=== PATIENT | female | born 1965 | race Caucasian/White ===

== ENCOUNTER 2016-11-23 08:16 | Emergency (ER) | payer BC ==
[2016-11-23] MEDS ORDERED: NS 0.9% 1000 ML* 1,000 ML IV ONE (08:42)
[2016-11-23] MEDS ORDERED: Ondansetron INJ* 2 MG/ML VIAL IV ONE (08:42)
[2016-11-23] MEDS ORDERED: Aspirin EC TAB* 325 MG PO ONE (08:44)
--- NOTE | 2016-11-23 09:24 | RAD ---
INDICATION: Chest pain COMPARISON: 194 hours TECHNIQUE: An AP portable view obtained at 0850 hrs is submitted. FINDINGS: Bones/Soft Tissues: There are no acute bony findings. Cardiomediastinal: The cardiomediastinal silhouette is normal. Lungs: There are no infiltrates. Pleura: There are no pleural effusions. Other: None IMPRESSION: NO ACTIVE DISEASE
[2016-11-23 09:45] LABS: Hematocrit 42 % (35-47); Hemoglobin 13.7 g/dl (12.0-16.0); Mean Corpuscular HGB Conc 33 g/dl (31-36); Mean Corpuscular Hemoglobin 27 pg (27-31); Mean Corpuscular Volume 82 fL (80-97); Mean Platelet Volume 9 um3 (7.4-10.4); Red Blood Count 5.11 10^6/ul (4.0-5.4); Red Cell Distribution Width 14 % (10.5-15); White Blood Count 7.6 10^3/ul (3.5-10.8)
[2016-11-23 09:58] LABS: Albumin 4.1 g/dL (3.2-5.2); BUN/Creatinine Ratio 17.6 (8-20); C Reactive Protein 6.12 mg/L (< 5.00); Calcium 9.3 mg/dL (8.6-10.3); EGFR African American 117.8 (>60); EGFR Non-African American 91.6 (>60); Globulin 3.3 g/dL (2-4); Potassium 3.9 mmol/L (3.5-5.0); Total Bilirubin 0.5 mg/dL (0.2-1.0); Total Protein 7.4 g/dL (6.4-8.9)
--- NOTE | 2016-11-23 10:20 | RAD ---
HISTORY: Right upper quadrant pain COMPARISONS: None TECHNIQUE: Multiple transverse and longitudinal ultrasound images were obtained of the right upper quadrant of the abdomen using grayscale and color Doppler imaging. FINDINGS: LIVER: The liver is diffusely echogenic and coarse in echotexture, with decreased acoustic transmission. The liver is otherwise normal in shape, size, and contour. There is normal hepatopedal flow of the portal vein on Doppler imaging. BILIARY TREE: There is no intrahepatic or extrahepatic biliary dilatation. The common duct measures 0.4 cm. GALLBLADDER: The gallbladder is well-visualized. There is no cholelithiasis, gallbladder wall thickening, pericholecystic fluid, or sonographic Espinoza sign. PANCREAS: The pancreas is obscured by overlying bowel gas. RIGHT KIDNEY: The right kidney is normal in shape, size, contour, and echogenicity. There is no hydronephrosis or nephrolithiasis. The right kidney measures 11.3 x 5.1 x 4.4 cm. AORTA AND IVC: The aorta and IVC are unremarkable. FLUID: There are no pleural effusions. There is no free fluid within the hepatorenal recess. OTHER FINDINGS: None. IMPRESSION: FATTY INFILTRATION OF THE LIVER
[2016-11-23 11:07] LABS: Urine Bilirubin Negative (Negative); Urine Glucose Negative (Negative); Urine Nitrite Negative (Negative)
[2016-11-23 12:54] VITALS: BP 124/82
--- NOTE | 2016-11-23 13:28 | ED ---
Shawn Massey Matthew, scribed for Aron Atkinson MD on 11/23/16 at 0902 . HPI Chest Pain - HPI Summary HPI Summary: A 51 y/o female presents to the ED with mid-sternal chest pain since 04:00 this morning. The pain radiates to the right shoulder and back. The pain is rated 5-6 /10 in severity, and described as pressure. Associated symptoms include nausea, vomiting, and headache. The n/v and headache preceded the chest pain. The patient denies abdominal pain. PMHx of pernicious anemia and asthma. SHx of two back surgeries. The patient drinks alcohol nightly and is a light everyday smoker. FHx of CAD. Her mother had an OH in her 60s. - History of Current Complaint Chief Complaint: EDChestPainROMI Time Seen by Provider: 11/23/16 08:32 Hx Obtained From: Patient Onset/Duration: Started Hours Ago, Atraumatic, Still Present Time of Onset: 04:00 Timing: Constant Initial Severity: Moderate Current Severity: Moderate Pain Intensity: 5 Pain Scale Used: 0-10 Numeric Chest Pain Location: Mid Sternal Chest Pain Radiates: Yes Chest Pain Radiates To:: Back, Shoulder - RT Character: Pressure/Squeezing Associated Signs and Symptoms: Positive: Chest Pain, Headaches, Nausea, Vomiting - Allergy/Home Medications Allergies/Adverse Reactions: Allergies Allergy/AdvReac Type Severity Reaction Status Date / Time Amitriptyline Allergy Severe Insomnia Verified 11/23/16 08:18 Sulfa Antibiotics Allergy Severe Nausea And Verified 11/23/16 08:18 Vomiting Apple Fruit Extract Allergy Swelling Verified 11/23/16 08:18 Of Face,Lips,& Throat Smith Allergy Rash Verified 11/23/16 08:18 PMH/Surg Hx/FS Hx/Imm Hx Endocrine/Hematology History: Reports: Hx Anemia - pernicious anemia Respiratory History: Reports: Hx Asthma, Hx Seasonal Allergies, Hx Sleep Apnea - evaluation for 02/2014 GI History: Reports: Hx Irritable Bowel Musculoskeletal History: Reports: Hx Back Problems - hx laminectomy L5-S1 Denies: Hx Scoliosis Neurological History: Reports: Other Neuro Impairments/Disorders - 1997 AND 2004 HAD MICRODISCECTOMY LOW BACK Denies: Hx Headaches - Cancer History Hx Chemotherapy: No Hx Radiation Therapy: No - Surgical History Surgery Procedure, Year, and Place: laminectomy L5-S1 Infectious Disease History: No Infectious Disease History: Denies: Traveled Outside the [place] in Last 30 Days - Family History Known Family History: Positive: Cardiac Disease - Social History Alcohol Use: Daily Alcohol Amount: 1 glass of wine/cocktail Substance Use Type: Reports: None Smoking Status (MU): Light Every Day Tobacco Smoker Type: Cigarettes Have You Smoked in the Last Year: Yes Review of Systems Constitutional: Negative Eyes: Negative ENT: Negative Positive: Chest Pain - mid-sternal Respiratory: Negative Positive: Vomiting, Nausea. Negative: Abdominal Pain Genitourinary: Negative Musculoskeletal: Negative Skin: Negative Positive: Headache Psychological: Normal All Other Systems Reviewed And Are Negative: Yes Physical Exam - Summary Physical Exam Summary: VITAL SIGNS: Reviewed. GENERAL: Patient is a thin female who is w/o distress Patient is not in any acute respiratory distress. HEAD AND FACE: No signs of trauma. No ecchymosis, hematomas or skull depressions. No sinus tenderness. EYES: PERRLA, EOMI x 2, No injected conjunctiva, no nystagmus. EARS: Hearing grossly intact. Ear canals and tympanic membranes are within normal limits. MOUTH: Oropharynx within normal limits. NECK: Supple, trachea is midline, no adenopathy, no JVD, no carotid bruit, no c- spine tenderness, neck with full ROM. CHEST: Symmetric, no tenderness at palpation LUNGS: Clear to auscultation bilaterally. No wheezing or crackles. CVS: Regular rate and rhythm, S1 and S2 present, no murmurs or gallops appreciated. ABDOMEN: Soft, non-tender. No signs of distention. No rebound no guarding, and no masses palpated. Bowel sounds are normal. EXTREMITIES: FROM in all major joints, no edema, no cyanosis or clubbing. NEURO: Alert and oriented x 3. No acute neurological deficits. Speech is normal and follows commands. SKIN: Dry and warm Triage Information Reviewed: Yes Vital Signs On Initial Exam: Initial Vitals Temp Pulse Resp BP Pulse Ox 98 F 64 20 175/104 97 11/23/16 08:18 11/23/16 08:18 11/23/16 08:18 11/23/16 08:18 11/23/16 08:18 Vital Signs Reviewed: Yes Diagnostics - Vital Signs Vital Signs Temp Pulse Resp BP Pulse Ox 11/23/16 08:18 98 F 64 20 175/104 97 - Laboratory Lab Results: Lab Results 11/23/16 11/23/16 11/23/16 Range/Units 08:20 08:20 08:20 WBC 7.6 (3.5-10.8) 10^3/ul RBC 5.11 (4.0-5.4) 10^6/ul Hgb 13.7 (12.0-16.0) g/dl Hct 42 (35-47) % MCV 82 (80-97) fL MCH 27 (27-31) pg MCHC 33 (31-36) g/dl RDW 14 (10.5-15) % Plt Count 220 (150-450) 10^3/ul MPV 9 (7.4-10.4) um3 Neut % (Auto) 73.0 (38-83) % Lymph % (Auto) 21.2 L (25-47) % [place] % (Auto) 3.8 (1-9) % Eos % (Auto) 1.6 (0-6) % Baso % (Auto) 0.4 (0-2) % Absolute Neuts (auto) 5.5 (1.5-7.7) 10^3/ul Absolute Lymphs (auto) 1.6 (1.0-4.8) 10^3/ul Absolute Monos (auto) 0.3 (0-0.8) 10^3/ul Absolute Eos (auto) 0.1 (0-0.6) 10^3/ul Absolute Basos (auto) 0 (0-0.2) 10^3/ul Absolute Nucleated RBC 0 10^3/ul Nucleated RBC % 0 Sodium 137 (133-145) mmol/L Potassium 3.9 (3.5-5.0) mmol/L Chloride 104 (101-111) mmol/L Carbon Dioxide 24 (22-32) mmol/L Anion Gap 9 (2-11) mmol/L BUN 12 (6-24) mg/dL Creatinine 0.68 (0.51-0.95) mg/dL Est GFR ( Amer) 117.8 (>60) Est GFR (Non-Af Amer) 91.6 (>60) BUN/Creatinine Ratio 17.6 (8-20) Glucose 107 H (70-100) mg/dL Lactic Acid 1.7 (0.5-2.0) mmol/L Calcium 9.3 (8.6-10.3) mg/dL Magnesium 2.0 (1.9-2.7) mg/dL Total Bilirubin 0.50 (0.2-1.0) mg/dL AST 20 (13-39) U/L ALT 21 (7-52) U/L Alkaline Phosphatase 46 (34-104) U/L Troponin I 0.00 (<0.04) ng/mL C-Reactive Protein 6.12 H (< 5.00) mg/L B-Natriuretic Peptide ( - 100) pg/mL Total Protein 7.4 (6.4-8.9) g/dL Albumin 4.1 (3.2-5.2) g/dL Globulin 3.3 (2-4) g/dL Albumin/Globulin Ratio 1.2 (1-3) Amylase 44 (29-103) U/L Lipase 32 (11.0-82.0) U/L 11/23/16 Range/Units 08:20 WBC (3.5-10.8) 10^3/ul RBC (4.0-5.4) 10^6/ul Hgb (12.0-16.0) g/dl Hct (35-47) % MCV (80-97) fL MCH (27-31) pg MCHC (31-36) g/dl RDW (10.5-15) % Plt Count (150-450) 10^3/ul MPV (7.4-10.4) um3 Neut % (Auto) (38-83) % Lymph % (Auto) (25-47) % [place] % (Auto) (1-9) % Eos % (Auto) (0-6) % Baso % (Auto) (0-2) % Absolute Neuts (auto) (1.5-7.7) 10^3/ul Absolute Lymphs (auto) (1.0-4.8) 10^3/ul Absolute Monos (auto) (0-0.8) 10^3/ul Absolute Eos (auto) (0-0.6) 10^3/ul Absolute Basos (auto) (0-0.2) 10^3/ul Absolute Nucleated RBC 10^3/ul Nucleated RBC % Sodium (133-145) mmol/L Potassium (3.5-5.0) mmol/L Chloride (101-111) mmol/L Carbon Dioxide (22-32) mmol/L Anion Gap (2-11) mmol/L BUN (6-24) mg/dL Creatinine (0.51-0.95) mg/dL Est GFR ( Amer) (>60) Est GFR (Non-Af Amer) (>60) BUN/Creatinine Ratio (8-20) Glucose (70-100) mg/dL Lactic Acid (0.5-2.0) mmol/L Calcium (8.6-10.3) mg/dL Magnesium (1.9-2.7) mg/dL Total Bilirubin (0.2-1.0) mg/dL AST (13-39) U/L ALT (7-52) U/L Alkaline Phosphatase (34-104) U/L Troponin I (<0.04) ng/mL C-Reactive Protein (< 5.00) mg/L B-Natriuretic Peptide 51 ( - 100) pg/mL Total Protein (6.4-8.9) g/dL Albumin (3.2-5.2) g/dL Globulin (2-4) g/dL Albumin/Globulin Ratio (1-3) Amylase (29-103) U/L Lipase (11.0-82.0) U/L Result Diagrams: 11/23/16 08:20 04 08:20 Lab Statement: Any lab studies that have been ordered have been reviewed, and results considered in the medical decision making process. - Radiology CXR Xray Interpretation: No Acute Changes - IMPRESSION: NO ACTIVE DISEASE Radiology Interpretation Completed By: Radiologist - Ultrasound No standard instances Ultrasound Interpretation: Positive (See Comments) - IMPRESSION: FATTY INFILTRATION OF THE LIVER Ultrasound Interpretation Completed By: Radiologist Chest Pain Course/Dx - Course Assessment/Plan: A 51 y/o female presents to the ED with mid-sternal chest pain since 04:00 this morning. The pain radiates to the right shoulder and back. The pain is rated 5-6/10 in severity, and described as pressure. Associated symptoms include nausea, vomiting, and headache. The n/v and headache preceded the chest pain. The patient denies abdominal pain. PMHx of pernicious anemia and asthma. SHx of two back surgeries. The patient drinks alcohol nightly and is a light every day smoker. FHx of CAD. Her mother had an OH in her 60s. Blood work WNL except glucose of 107, and C - reactive protein of 6.12, troponin 1 was 0.00 and troponin 2 was 0.01. Both troponins were negative. EKG shows no STEMI. US of the gallbladder shows fatty infiltrate of the liver without any other abnormalities. In the ED course, the patient was given aspirin, IV fluids , and Zofran for n/v. After the medications, the patients symptoms improved and she has been asymptomatic. Since the patient does not have significant co- morbidities she will be discharged home with follow-up from her PCP. She is hemodynamically stable and A&Ox3. I discussed all the findings and test results with the patient. Patient was instructed to return to the emergency room immediately if any of the symptoms return or worsens. Plan of care was discussed with the patient and understands and agrees. All questions were answered at patient satisfaction. There were no further complaints or concerns. Lung exam before discharge: CTA B/L. Good air exchange. No wheezing or crackles heard. CVS: S1 and S2 present. No murmurs appreciated. Patient is alert and oriented x 3. Patient is hemodynamically stable. Patient will be discharged home with follow up PCP in the next 2-3 days - Chest Pain Differential Diagnosis/HQI/PQRI: Acute OH, ACS, Angina, CHF, Chest Wall, GI Disease, Lower Respiratory Infection, Other: - Diagnoses Provider Diagnoses: Chest pain Discharge - Discharge Plan Condition: Stable Disposition: HOME Patient Education Materials: Chest Pain (ED) Referrals: Syed Cruz MD [Primary Care Provider] - Additional Instructions: Please follow-up with your primary care physician in 2 days. The documentation as recorded by the Shawn bustillo Matthew accurately reflects the service I personally performed and the decisions made by , Aron Atkinson MD.
== END 2016-11-23 12:54 | disposition home or self-care (01) ==
LOC: ED 08:16
DX: R07.9 Chest pain, unspecified (principal); R11.2 Nausea with vomiting, unspecified; R51 Headache; F17.210 Nicotine dependence, cigarettes, uncomplicated; K76.0 Fatty (change of) liver, not elsewhere classified
CPT/HCPCS: 36415; 71010; 76705; 80053; 81003; 82150; 83605; 83690; 83735; 83880; 84484; 85025; 86140; 93005; 99284; A9270-GY; J2405

== ENCOUNTER 2017-05-10 10:17 | Emergency (ER) | payer BC ==
[2017-05-10 10:31] VITALS: BP 149/102
[2017-05-10] MEDS ORDERED: Ondansetron ODT TAB* 4 MG PO ONE (10:40)
--- NOTE | 2017-05-10 10:47 | UC ---
Eye Complaint HPI - HPI Summary HPI Summary: WOKE UP THIS MORNING IN USUAL STATE OF HEALTH. GOT TO WORK AND SUDDENLY HAD RIGHT EYE VISUAL DISTURBANCE. FLET LIKE A CURTAIN WAS SWEEPING OVER HER RIGHT VISUAL FIELD. WAS SEEING COLORS SWIRLING AND COULD NOT SEE HER COMPUTER SCREEN. THAT HAS RESOLVED NOW BUT SHE STILL HAS BLURRY VISION OUT OF HER RIGHT EYE AND FEELS "OFF". ALSO HAS SLIGHT NAUSEA, KENNEDY AND PHOTOPHOBIA. - History of Current Complaint Chief Complaint: UCEye Stated Complaint: EYE COMPLAINT Time Seen by Provider: 05/10/17 10:33 Hx Obtained From: Patient Onset/Duration: Sudden Onset, Lasting Hours, Still Present Timing: Constant Severity Initially: Moderate Severity Currently: Moderate Pain Intensity: 0 Pain Scale Used: 0-10 Numeric Aggravating Factor(s): Light Alleviating Factor(s): Nothing Associated Signs And Symptoms: Positive: Photophobia, Vision Impairment Right - Allergies/Home Medications Allergies/Adverse Reactions: Allergies Allergy/AdvReac Type Severity Reaction Status Date / Time Amitriptyline Allergy Severe Insomnia Verified 05/10/17 10:24 Sulfa Antibiotics Allergy Severe Nausea And Verified 05/10/17 10:24 Vomiting Apple Fruit Extract Allergy Swelling Verified 05/10/17 10:24 Of Face,Lips,& Throat Smith Allergy Rash Verified 05/10/17 10:24 Home Medications: Home Medications Fluticasone NASAL * [Flonase *] 05/10/17 [History] Inahler 05/10/17 [History] PMH/Surg Hx/FS Hx/Imm Hx Respiratory History: Asthma - Surgical History Surgical History: Yes Surgery Procedure, Year, and Place: laminectomy L5-S1 x 2 - Family History Known Family History: Positive: Cardiac Disease - Social History Alcohol Use: Daily Alcohol Amount: 1 glass of wine/cocktail Substance Use Type: None Smoking Status (MU): Light Every Day Tobacco Smoker Type: Cigarettes Amount Used/How Often: 2 cig/day Have You Smoked in the Last Year: Yes Review of Systems Constitutional: Negative Eyes: Blurred Vision, Photophobia Respiratory: Negative Cardiovascular: Negative Gastrointestinal: Negative All Other Systems Reviewed And Are Negative: Yes Physical Exam Triage Information Reviewed: Yes Appearance: Well-Appearing, No Pain Distress, Well-Nourished Vital Signs: Initial Vital Signs Temp 97.1 F 05/10/17 10:26 Pulse 57 05/10/17 10:26 Resp 18 05/10/17 10:26 BP 149/102 05/10/17 10:26 Pulse Ox 100 05/10/17 10:26 Vital Signs Reviewed: Yes Eyes: Positive: Conjunctiva Clear, Other: - PERRL, EOMI. Negative: Discharge ENT: Positive: Hearing grossly normal Neck: Positive: Supple Respiratory: Positive: No respiratory distress, No accessory muscle use Cardiovascular: Positive: Pulses Normal Abdomen Description: Positive: Soft Musculoskeletal: Positive: No Edema Neurological: Positive: Alert Psychological: Positive: Age Appropriate Behavior Skin: Negative: rashes Eye Complaint Course/Dx - Course Course Of Treatment: CALLED DR. PERSAUD'S OFFICE. THEY WILL SEE HER NOW. PT TO GO DIRECTLY THERE FROM HERE. CONCERN FOR RETINAL DETACHMENT VS. GLAUCOMA - Differential Dx/Diagnosis Provider Diagnoses: RIGHT EYE BLURRY VISION Discharge - Discharge Plan Condition: Stable Disposition: OTHER Discharge Disposition Comment: TO DR. PERSAUD'S OFFICE Patient Education Materials: Blurred Vision (ED) Referrals: Syed Cruz MD [Primary Care Provider] - If Needed Additional Instructions: GO DIRECTLY TO DR. PERSAUD'S OFFICE FROM HERE FOR FURTHER EVALUATION. THEY ARE EXPECTING YOU.
== END 2017-05-10 10:57 ==
LOC: UCEAST 10:17
DX: H53.9 Unspecified visual disturbance (principal); Z88.2 Allergy status to sulfonamides; F17.210 Nicotine dependence, cigarettes, uncomplicated
CPT/HCPCS: 99211; A9270-GY; G0463

== ENCOUNTER 2018-04-17 09:24 | Emergency (ER) | payer BC ==
[2018-04-17 09:31] VITALS: BP 111/80
[2018-04-17] MEDS ORDERED: Ondansetron ODT TAB* 4 MG SL PRN (10:11)
--- NOTE | 2018-04-17 10:13 | UC ---
Abdominal Pain Female HPI - HPI Summary HPI Summary: Patient complains of right flank pain, left and right upper quadrant pain, epigastric pain with nausea and diarrhea and low-grade fever 4 days. Pain worse with eating. Abdominal pain described as constant, sharp. Patient will not rate pain out of 10. Patient denies cough, sore throat, CP, SOB, vomiting, change in urine, vaginal sx. Medical history is asthma, pernicious anemia, Raynaud's, sleep apnea. History of ulcer at 17 years old. Abdominal/pelvic surgical history is none. Last antipyretic taken yesterday morning. - History of Current Complaint Chief Complaint: UCAbdominalPain Stated Complaint: ABDOMINAL PAIN Time Seen by Provider: 04/17/18 10:01 Hx Obtained From: Patient Onset/Duration: Sudden Onset Timing: Constant Severity Initially: Moderate Severity Currently: Moderate Pain Intensity: 5 Pain Scale Used: 0-10 Numeric Location: Discrete At: RUQ, Discrete At: LUQ, Epigastric Radiates: Yes Radiates to: Flank Character: Sharp Aggravating Factor(s): Food Alleviating Factor(s): Nothing Associated Signs and Symptoms: Positive: Fever, Nausea Allergies/Adverse Reactions: Allergies Allergy/AdvReac Type Severity Reaction Status Date / Time amitriptyline Allergy Insomnia Verified 04/17/18 09:33 apple Allergy Swelling Verified 04/17/18 09:33 Of Face,Lips,& Throat barrera Allergy Rash Verified 04/17/18 09:33 peach Allergy Hives/Diff. Verified 04/17/18 09:33 Breathing/I tching plum Allergy Hives/Diff. Verified 04/17/18 09:33 Breathing/I tching Sulfa (Sulfonamide Allergy Nausea And Verified 04/17/18 09:33 Antibiotics) Vomiting PMH/Surg Hx/FS Hx/Imm Hx Respiratory History: Asthma GI/ History: Ulcer - Surgical History Surgical History: Yes Surgery Procedure, Year, and Place: laminectomy L5-S1 x 2 - Family History Known Family History: Positive: Cardiac Disease - Social History Alcohol Use: Daily Alcohol Amount: 1 glass of wine/cocktail Substance Use Type: None Smoking Status (MU): Light Every Day Tobacco Smoker Type: Cigarettes Amount Used/How Often: 2 cig/day Have You Smoked in the Last Year: Yes Review of Systems Constitutional: Fever Skin: Negative Eyes: Negative ENT: Negative Respiratory: Negative Cardiovascular: Negative Gastrointestinal: Abdominal Pain, Nausea Genitourinary: Negative Motor: Negative Neurovascular: Negative Musculoskeletal: Negative Neurological: Negative Psychological: Negative Is Patient Immunocompromised?: No All Other Systems Reviewed And Are Negative: Yes Physical Exam - Summary Physical Exam Summary: Abdomen diffusely tender, worse in the epigastrium, least in right lower quadrant. Right CVA tenderness. Triage Information Reviewed: Yes Appearance: Well-Appearing Vital Signs: Initial Vital Signs Temp 97.8 F 04/17/18 09:28 Pulse 73 04/17/18 09:28 Resp 18 04/17/18 09:28 BP 111/80 04/17/18 09:28 Pulse Ox 100 04/17/18 09:28 Vital Signs Reviewed: Yes Eye Exam: Normal Neck exam: Normal Respiratory Exam: Normal Cardiovascular Exam: Normal Abdominal Exam: Other Musculoskeletal Exam: Normal Neurological Exam: Normal Psychological Exam: Normal Skin Exam: Normal Abd Pain Female Course/Dx - Course Course Of Treatment: Patient complains of right flank pain, left and right upper quadrant pain, epigastric pain with nausea and diarrhea and low-grade fever 4 days. Pain worse with eating. Abdominal pain described as constant, sharp. Patient will not rate pain out of 10. Patient denies cough, sore throat , CP, SOB, vomiting, change in urine, vaginal sx. Medical history is asthma, pernicious anemia, Raynaud's, sleep apnea. History of ulcer at 17 years old. Abdominal/pelvic surgical history is none. Physical exam:Abdomen diffusely tender, worse in the epigastrium, least in right lower quadrant. Right CVA tenderness. Vital signs within normal limits. Advised patient to go to the ED now for better evaluation of her abdominal pain. Patient understands and approves plan. We will go to ED by private vehicle. Patient refused Zofran here in the at . - Differential Dx/Diagnosis Provider Diagnoses: abdominal pain. nausea. diarrhea Discharge - Sign-Out/Discharge Documenting (check all that apply): Patient Departure All imaging exams completed and their final reports reviewed: No Studies - Discharge Plan Condition: Stable Disposition: HOME Patient Education Materials: Acute Abdominal Pain (ED) Referrals: Syed Cruz MD [Primary Care Provider] - Additional Instructions: Please go to ED now for better evaluation of your abdominal pain. - Billing Disposition and Condition Condition: STABLE Disposition: Home
== END 2018-04-17 10:23 | disposition home or self-care (01) ==
LOC: UCEAST 09:24
DX: R10.12 Left upper quadrant pain (principal); R10.11 Right upper quadrant pain; R10.13 Epigastric pain; R11.0 Nausea; R19.7 Diarrhea, unspecified; R50.9 Fever, unspecified; Z88.2 Allergy status to sulfonamides; Z88.8 Allergy status to other drugs, medicaments and biological substances; Z91.018 Allergy to other foods; F17.210 Nicotine dependence, cigarettes, uncomplicated
CPT/HCPCS: 99212; G0463

== ENCOUNTER 2018-04-17 10:37 | Emergency (ER) | payer BC ==
[2018-04-17] MEDS ORDERED: Ondansetron ODT TAB* 4 MG SL ONE (12:40)
--- NOTE | 2018-04-17 12:56 | ED ---
Abdominal Pain/Female - HPI Summary HPI Summary: Patient is a 52-year-old female with a PMH of pernicious anemia and Raynauds syndrome presenting to the ED with 4 day history of abdominal pain which she describes as "bandlike" to the bilateral upper quadrants, worse to the right side. She states this radiates to the right upper back and right shoulder. Also is endorsing nausea and mucous filled stools over the past 2 days. She denies any abdominal surgeries and has never had this before. She denies diarrhea or constipation. While she endorses nausea, she denies any vomiting at this time. Denies fever, however has been having intermittent sweats and chills. Symptoms are not worse or better with positioning, however symptoms worsen after food intake. She does not notice a difference between fatty foods or otherwise. - History of Current Complaint Chief Complaint: EDAbdPain Stated Complaint: RT SIDE ABD PAIN/NAUSEA Time Seen by Provider: 04/17/18 12:13 Hx Obtained From: Patient ?: No Onset/Duration: Sudden Onset Timing: Constant Severity Initially: Moderate Severity Currently: Moderate Pain Intensity: 6 Pain Scale Used: 0-10 Numeric Location: Other - bilateral upper quadrants with worsening to the R side Radiates: No Aggravating Factor(s): Food Alleviating Factor(s): Nothing Associated Signs and Symptoms: Positive: Negative, Nausea, Other: - Mucous filled stools, denies any blood in the stools. Negative: Back Pain, Constipation, Blood in Stool, Urinary Symptoms, Decreased Appetite, Vomiting, Diarrhea - Risk Factors Ectopic Risk Factor: Negative Ovarian Torsion Risk Factor: Negative Allergies/Adverse Reactions: Allergies Allergy/AdvReac Type Severity Reaction Status Date / Time amitriptyline Allergy Insomnia Verified 04/17/18 12:17 apple Allergy Swelling Verified 04/17/18 12:17 Of Face,Lips,& Throat barrera Allergy Rash Verified 04/17/18 12:17 peach Allergy Hives/Diff. Verified 04/17/18 12:17 Breathing/I tching plum Allergy Hives/Diff. Verified 04/17/18 12:17 Breathing/I tching Sulfa (Sulfonamide Allergy Nausea And Verified 04/17/18 12:17 Antibiotics) Vomiting Home Medications: Home Medications Gabapentin CAP(*) [Neurontin 400 mg CAP(*)] 400 mg PO DAILY 04/17/18 [History Confirmed 04/17/18] PMH/Surg Hx/FS Hx/Imm Hx Previously Healthy: Yes Endocrine/Hematology History: Reports: Hx Anemia - pernicious anemia Respiratory History: Reports: Hx Asthma, Hx Seasonal Allergies, Hx Sleep Apnea - evaluation for 02/2014 GI History: Reports: Hx Irritable Bowel Musculoskeletal History: Reports: Hx Back Problems - hx laminectomy L5-S1 Denies: Hx Scoliosis Neurological History: Reports: Other Neuro Impairments/Disorders - 1997 AND 2004 HAD MICRODISCECTOMY LOW BACK Denies: Hx Headaches - Cancer History Hx Chemotherapy: No Hx Radiation Therapy: No - Surgical History Surgery Procedure, Year, and Place: laminectomy L5-S1 x 2 - Immunization History Hx Pertussis Vaccination: No Immunizations Up to Date: Yes Infectious Disease History: No Infectious Disease History: Denies: Traveled Outside the [place] in Last 30 Days - Family History Known Family History: Positive: Cardiac Disease - Social History Occupation: Employed Full-time Lives: With Family Alcohol Use: Daily Alcohol Amount: 1 glass of wine/cocktail Hx Substance Use: No Substance Use Type: Reports: None Hx Tobacco Use: Yes Smoking Status (MU): Light Every Day Tobacco Smoker Type: Cigarettes Amount Used/How Often: 2 cig/day Have You Smoked in the Last Year: Yes Review of Systems Constitutional: Negative Negative: Fever, Chills, Fatigue, Skin Diaphoresis Negative: Palpitations, Chest Pain Negative: Shortness Of Breath, Cough Genitourinary: Negative Positive: no symptoms reported, see HPI Negative: Arthralgia, Myalgia Skin: Negative Neurological: Negative All Other Systems Reviewed And Are Negative: Yes Physical Exam Triage Information Reviewed: Yes Vital Signs On Initial Exam: Initial Vitals Temp Pulse Resp BP Pulse Ox 97.6 F 71 16 125/85 97 04/17/18 10:58 04/17/18 10:58 04/17/18 10:58 04/17/18 10:58 04/17/18 10:58 Vital Signs Reviewed: Yes Appearance: Positive: Well-Appearing, Well-Nourished Skin: Positive: Warm, Skin Color Reflects Adequate Perfusion Head/Face: Positive: Normal Head/Face Inspection Eyes: Positive: EOMI, OMAR, Conjunctiva Clear Neck: Positive: Supple, No Lymphadenopathy Respiratory/Lung Sounds: Positive: Clear to Auscultation, Breath Sounds Present Cardiovascular: Positive: RRR, Pulses are Symmetrical in both Upper and Lower Extremities Abdomen Description: Positive: Nontender. Negative: Soft, Bruit, CVA Tenderness (R), CVA Tenderness (L), Distended, Guarding, McBurney's Point Tenderness Bowel Sounds: Positive: Present Musculoskeletal: Positive: Normal, Strength/ROM Intact Neurological: Positive: Facial Symmetry Psychiatric: Positive: Normal, Affect/Mood Appropriate AVPU Assessment: Alert Diagnostics - Vital Signs Vital Signs Temp Pulse Resp BP Pulse Ox 04/17/18 10:58 97.6 F 71 16 125/85 97 - Laboratory Result Diagrams: 04/17/18 12:47 04/17/18 12:47 Lab Statement: Any lab studies that have been ordered have been reviewed, and results considered in the medical decision making process. Abdominal Pain Fem Course/Dx - Course Course Of Treatment: On physical examination, negative Rovsing sign or tenderness at McBurney's point. Espinoza's sign positive only with deep palpation. Lungs CTA. RRR. Patient appears well and appears to be in no discomfort, however she states she remains nauseous. She is given Zofran ODT. Labs are drawn and right upper quadrant gallbladder ultrasound obtained. IMPRESSION: IMPRESSION: #. Hepatosteatosis. #. The pancreatic tail is partially obscured due to bowel gas with the visualized pancreas. unremarkable. #. Negative for biliary dilatation or gallbladder pathology. Labs obtained and are all WNL including WBC and pancreatic enzymes. Discussed results at length with patient and . Patient would like to follow-up with Dr. Cruz and do no further testing at this time. I have offered CT abdomen/pelvis to assess for other pathologies, however according to the labs, physical exam, UA, have low suspicion for appendicitis, diverticulitis, SBO. Patient understands return precautions and voices no concerns at this time. - Diagnoses Differential Diagnosis: Positive: Irritable Bowel Syndrome, Pancreatitis, Peptic Ulcer Disease Provider Diagnoses: Abdominal pain Discharge - Sign-Out/Discharge Documenting (check all that apply): Patient Departure - Discharge Plan Condition: Stable Disposition: HOME Referrals: Syed Cruz MD [Primary Care Provider] - Additional Instructions: Please follow up with Dr. Cruz - Billing Disposition and Condition Condition: STABLE Disposition: Home
[2018-04-17 12:57] LABS: ABS Basophils 0 10^3/ul (0-0.2); ABS Eosinophils 0.2 10^3/ul (0-0.6); ABS Lymphocytes 1.6 10^3/ul (1.0-4.8); ABS Monocytes 0.4 10^3/ul (0-0.8); ABS Neutrophils 3.5 10^3/ul (1.5-7.7); ABS Nucleated RBC 0 10^3/ul; Eosinophil % 3.2 % (0-6); Hematocrit 44 % (35-47); Hemoglobin 14.3 g/dl (12.0-16.0); Lymphocyte % 27.5 % (25-47); Mean Corpuscular HGB Conc 33 g/dl (31-36); Mean Corpuscular Hemoglobin 27 pg (27-31); Mean Corpuscular Volume 83 fL (80-97); Mean Platelet Volume 7.7 um3 (7.4-10.4); Nucleated Red Blood Cells % 0.1; Platelet Count 186 10^3/ul (150-450); Red Blood Count 5.27 10^6/ul (4.00-5.40); Red Cell Distribution Width 13 % (10.5-15); White Blood Count 5.7 10^3/ul (3.5-10.8)
[2018-04-17 13:14] LABS: EGFR Non-African American 77.9 (>60)
[2018-04-17 13:44] LABS: Urine Appearance Cloudy; Urine Blood Negative (Negative); Urine Color Yellow; Urine Ketones 1+ (Negative); Urine Protein Negative (Negative); Urine Red Blood Cell 2+(6-10/hpf) (Absent); Urine Urobilinogen Negative (Negative); Urine White Blood Cell Trace(0-5/hpf) (Absent)
--- NOTE | 2018-04-17 14:24 | RAD ---
Indication: RIGHT upper quadrant pain. Mucus filled stools. Comparison: November 23, 2016 RIGHT upper quadrant ultrasound. Technique: RIGHT upper quadrant ultrasound. Report: Appropriate direction flow documented in the portal and hepatic veins. 16.7 cm liver is increased in echogenicity. Negative for focal hepatic lesions. Negative for intrahepatic biliary dilatation. 3.0 mm common bile duct. Adequately distended gallbladder with normal 2.4 mm wall is without pathologic finding. Negative for sonographic Espinoza's sign. The pancreatic tail is partially obscured due to bowel gas with the visualized pancreas unremarkable. Negative for ascites. 11.6 cm RIGHT kidney is unremarkable. IMPRESSION: #. Hepatosteatosis. #. The pancreatic tail is partially obscured due to bowel gas with the visualized pancreas unremarkable. #. Negative for biliary dilatation or gallbladder pathology.
[2018-04-17 15:18] VITALS: BP 120/82
== END 2018-04-17 15:17 | disposition home or self-care (01) ==
LOC: ED 10:37
DX: R10.12 Left upper quadrant pain (principal); R10.11 Right upper quadrant pain; I73.00 Raynaud's syndrome without gangrene; J45.909 Unspecified asthma, uncomplicated; D51.0 Vitamin B12 deficiency anemia due to intrinsic factor deficiency; K58.9 Irritable bowel syndrome, unspecified; F17.210 Nicotine dependence, cigarettes, uncomplicated
CPT/HCPCS: 36415; 76705; 80053; 81003; 81015; 82150; 83605; 83690; 83735; 85025; 86140; 87086; 99282; A9270-GY

== ENCOUNTER 2024-04-24 14:04 | Observation (INO) ==
[2024-04-24] MEDS: Iodixanol (CONTRAST) 320 MG/ML 100 ML SDV IV ONE (14:29)
[2024-04-24 14:33] LABS: ABS Basophils 0.1 10^3/uL (0.0-0.1); ABS Eosinophils 0.2 10^3/uL (0.0-0.5); ABS Lymphocytes 2.4 10^3/uL (1.0-4.8); ABS Monocytes 0.5 10^3/uL (0.0-0.9); ABS Neutrophils 6.1 10^3/uL (1.5-7.6); ABS Nucleated RBC 0.01 10^3/ul; Eosinophil % 1.9 %; Hematocrit 43.7 % (35-45); Hemoglobin 14.7 g/dL (11.5-14.3); Lymphocyte % 25.6 %; Mean Corpuscular Hemoglobin 27.6 pg (27-33); Mean Corpuscular Hgb Conc 33.5 g/dL (31-36); Mean Corpuscular Volume 82.3 fL (80-97); Mean Platelet Volume 7.8 fL (7.5-11.2); Nucleated Red Blood Cells % 0.1 %/100WBC (0.0-0.8); Platelet Count 257 10^3/uL (150-450); Red Blood Count 5.31 10^6/uL (3.63-4.92); Red Cell Distribution Width 14.2 % (12-17); White Blood Count 9.3 10^3/uL (3.8-11.8)
[2024-04-24 14:40] LABS: Activated Partial Thrombo Time 33.6 seconds (26.0-38.0); INR 1.01 (0.85-1.14)
[2024-04-24] MEDS: Aspirin EC 81 mg TAB.EC (enteric coated) PO ONE (14:48)
[2024-04-24 15:18] LABS: Albumin 4.8 g/dL (3.2-5.2); Albumin/Globulin Ratio 1.5 (1-3); Anion Gap 11 mmol/L (2-16); Blood Urea Nitrogen 14 mg/dL (6-24); CO2 Carbon Dioxide 30 mmol/L (22-32); Calcium 10.2 mg/dL (8.6-10.3); Chloride 96 mmol/L (101-111); Creatinine, Serum 0.81 mg/dL (0.51-0.95); Direct Bilirubin 0.1 mg/dL (0.03-0.18); Globulin 3.2 g/dL (2-4); Glucose 101 mg/dL (70-100); Sodium 137 mmol/L (135-145); Total Bilirubin 0.5 mg/dL (0.2-1.0); eGFR CKD-EPI 84.6 (>60)
[2024-04-24 15:19] LABS: ALT 48 U/L (7-52); AST 38 U/L (13-39); Alkaline Phosphatase 51 U/L (35-149); Cholesterol 198 mg/dL; HDL Cholesterol 63.1 mg/dL; Indirect Bilirubin 0.4 mg/dL (0.3-1.0); LDL Cholesterol 96 mg/dL; Triglycerides 197 mg/dL
[2024-04-24 15:28] LABS: TSH Ultra Thyroid Stim Horm 3.39 mcIU/mL (0.34-5.60)
[2024-04-24 15:30] LABS: Free T4 0.75 ng/dL (0.61-1.12)
[2024-04-24 18:20] LABS: Urine Appearance Clear; Urine Bilirubin Negative (Negative); Urine Blood Negative (Negative); Urine Color Light-Yellow; Urine Glucose Negative (Negative); Urine Ketones Negative (Negative); Urine Nitrite Negative (Negative); Urine Protein Negative (Negative); Urine Specific Gravity 1.014 (1.002-1.030); Urine Urobilinogen Negative (Negative); Urine pH 7.5 (5.0-8.0)
[2024-04-24] MEDS: Gadoteridol (CONTRAST) 279.3 MG/ML 10 ML IV ONE (20:18)
[2024-04-24 21:05] LABS: Folate 12.05 ng/mL (5.90-24.80)
[2024-04-24 21:06] LABS: Vitamin B12 353 pg/mL (180-914)
[2024-04-24 22:34] LABS: Alcohol, S < 13 mg/dL (<13)
[2024-04-24 23:24] LABS: Urine Benzodiazepine Screen None Detected (None Detect); Urine Cannabinoids Screen None Detected (None Detect); Urine Opiates Screen None Detected (None Detect)
[2024-04-24] MEDS ORDERED: Albuterol HFA INHALER 8 gm MDI INH PRN (23:30)
[2024-04-24] MEDS: Senna TAB 8.6 mg TAB PO SCH (23:42)
[2024-04-24] MEDS: Polyethylene Glycol 3350 17 GM PACKET PO ONE (23:43)
[2024-04-24] MEDS: Magnesium Hydroxide LIQ 30 ML UDC PO ONE (23:43)
[2024-04-24] MEDS ORDERED: Magnesium Hydroxide LIQ 30 ML UDC PO SCH (23:45)
[2024-04-25] MEDS: Enoxaparin 40 MG/0.4 ML SYR SUBCUT SCH (01:38)
[2024-04-25] MEDS: Mometasone/Formoter 100/5 MDI INH SCH (08:00)
[2024-04-25 09:42] VITALS: BP 120/74
== END 2024-04-25 09:43 | disposition home or self-care (01) ==
LOC: EDHOLD 14:04 → ED 14:04 → SUATTDRO 19:14 → EDHOLD 04-25 09:42
PROVIDERS: ADMIT Internal Medicine; ATTEND Internal Medicine